=== PATIENT | female | born 1990 | race African-American/Black ===

== ENCOUNTER 2018-02-14 12:48 | Emergency (ER) | payer BC ==
[~2018-02-14] VITALS: Ht 165.1 cm; Wt 59.0 kg
[2018-02-14 13:06] VITALS: BP_SYST 143
--- NOTE | 2018-02-14 15:00 | NUR ---
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
--- NOTE | 2018-02-14 16:10 | NUR ---
Pt eloped from ER at this time. charged nurse awared.
== END 2018-02-14 16:10 | disposition left against medical advice (07) ==
LOC: SED 12:48
DX: S13.4XXA Sprain of ligaments of cervical spine, initial encounter (principal); V43.62XA Car passenger injured in collision with other type car in traffic accident, initial encounter; Y93.89 Activity, other specified; Y92.89 Other specified places as the place of occurrence of the external cause; Y99.8 Other external cause status
CPT/HCPCS: 72040-TC; 99284